=== PATIENT | female | born 1945 | race Hispanic/Latino ===

== ENCOUNTER 2024-02-04 19:04 | Emergency (ER) | payer MEDICARE ==
[~2024-02-04] VITALS: Ht 309.9 cm; Wt 67.1 kg
[~2024-02-04 19:04] MED LIST: AMLODIPINE BESYL5 MG PO; BENZONATATE100 MG PO; BUSPIRONE HCL7.5 MG PO; CARVEDILOL12.5 MG PO; CEFDINIR300 MG PO; CELECOXIB100 MG PO; CLOPIDOGREL75 MG PO; CYCLOBENZAPRINE5 MG PO; GABAPENTIN300 MG PO; HYDRALAZINE HCL10 MG PO; HYDROCODON-ACE1 EA11 PO; LOSARTAN POTASS50 MG PO; METHOCARBAMOL750 MG PO; ONDANSETRON HCL4 MG SL; ROSUVASTATIN CA20 MG PO; SERTRALINE HCL100 MG PO
[2024-02-04] MEDS ORDERED: SODIUM CHLORIDE 0.9% 1000ML 1,000 ML ONE (19:19)
[2024-02-04] MEDS ORDERED: Morphine 4mg INJECTION 4 MG/ML INJ ONE (19:19)
[2024-02-04] MEDS ORDERED: ONDANSETRON HCL INJ 2MG/ML 2ML 2 MG/ML VIAL ONE (19:19)
[2024-02-04] MEDS: ONDANSETRON HCL 4 MG ORAL DISINTEGRATING TAB PO STA (19:29)
[2024-02-04] MEDS: Morphine 4mg INJECTION 4 MG/ML INJ IM STA (19:29)
[2024-02-04] MEDS: ONDANSETRON HCL INJ 2MG/ML 2ML 2 MG/ML VIAL IV STA (19:30)
[2024-02-04] MEDS: Morphine 4mg INJECTION 4 MG/ML INJ IV ONE (19:30)
[2024-02-04] MEDS ORDERED: ONDANSETRON HCL 4 MG ORAL DISINTEGRATING TAB ONE (19:31)
[2024-02-04] MEDS: LIDOCAINE HCL 1% LOCAL INJ 20 ML VIAL INJ STA (20:11)
[2024-02-04] MEDS: SODIUM CHLORIDE 0.9% 1000ML 1,000 ML IV ONE (20:11)
[2024-02-04] MEDS ORDERED: HYDROCODON-ACE1 EA11 PO (20:39)
[2024-02-04] MEDS ORDERED: BACITRACIN ZINC 0.9GM TP ONE (21:11)
[2024-02-04] MEDS: BACITRACIN ZINC 0.9GM TP ONE (21:11)
[2024-02-04 22:18] VITALS: BP 140/65; PULSE 69; RESP 17; TEMP 98.1; O2SAT 100
== END 2024-02-04 22:30 | disposition home or self-care (01) ==
LOC: ER 20:04
DX: T24.222A Burn of second degree of left knee, initial encounter (principal); X12.XXXA Contact with other hot fluids, initial encounter; Y92.89 Other specified places as the place of occurrence of the external cause; I10 Essential (primary) hypertension; F03.90 Unspecified dementia, unspecified severity, without behavioral disturbance, psychotic disturbance, mood disturbance, and anxiety; E78.5 Hyperlipidemia, unspecified; I73.9 Peripheral vascular disease, unspecified; F32.A Depression, unspecified; Z95.810 Presence of automatic (implantable) cardiac defibrillator; Z86.73 Personal history of transient ischemic attack (TIA), and cerebral infarction without residual deficits
CPT/HCPCS: 99283; J2001; J2270; J2405; J7030; Q0162

== ENCOUNTER 2024-04-08 20:29 | Emergency (ER) | payer MEDICARE ==
[~2024-04-08] VITALS: Ht 157.5 cm; Wt 67.1 kg
[~2024-04-08 20:29] MED LIST changes: +CIPRO500 MG PO; +LEVSIN-SL0.125 MG SL
[2024-04-08 20:58] LABS: BASOPHILS % 0.9 % (0.0-1.0); EOSINOPHILS # (AUTO) 0.1 (0.0-0.4); EOSINOPHILS % 2.4 % (0.0-6.0); HEMATOCRIT 36.1 % (34.2-44.1); HEMOGLOBIN 11.7 g/dL (12.0-16.0); LYMPHOCYTES % 43.9 % (18.0-39.1); MEAN CORPUSCULAR HEMOGLOBIN 29.1 pg (28-32); MEAN CORPUSCULAR HGB CONC 32.4 g/dL (31-35); MEAN CORPUSCULAR VOLUME 89.8 fL (81-99); MONOCYTES # (AUTO) 0.4 (0.2-0.8); NEUTROPHILS # (AUTO) 2.1 (2.1-6.9); NEUTROPHILS % 44.6 % (38.7-80.0); PLATELET COUNT 211 x10e3/uL (140-360); RED BLOOD COUNT 4.02 x10e6/uL (3.6-5.1); RED CELL DISTRIBUTION WIDTH 13.3 % (11.7-14.4); WHITE BLOOD COUNT 4.62 x10e3/uL (4.8-10.8)
[2024-04-08 21:18] LABS: ALANINE AMINOTRANSFERASE 15 IU/L (0-55); ALBUMIN 3.5 g/dL (3.5-5.0); ALBUMIN/GLOBULIN RATIO 1.4 (0.8-2.0); ALKALINE PHOSPHATASE 105 IU/L (40-150); BILIRUBIN,TOTAL 0.4 mg/dL (0.2-1.2); BLOOD UREA NITROGEN 10 mg/dL (7-26); BUN/CREATININE RATIO 13 (6-25); CALCIUM 8.5 mg/dL (8.4-10.2); CARBON DIOXIDE 23 mmol/L (22-29); CHLORIDE 106 mmol/L (98-107); CREATINE KINASE 68 IU/L (29-168); CREATININE, SERUM 0.79 mg/dL (0.57-1.11); EST GLOMERULAR FILTRATION RATE 76 ML/MIN (>=60); GLUCOSE 96 mg/dL (74-118); SODIUM 139 mmol/L (136-145)
[2024-04-08 21:20] LABS: TROPONIN I < 0.001 ng/mL (0-0.300)
[2024-04-08] MEDS ORDERED: IOPAMIDOL 370 MG/ML 100 ML INFUS..BTL INJ ONE (22:19)
[2024-04-08 23:05] LABS: BILIRUBIN,URINE NEGATIVE (NEGATIVE); CLARITY,URINE CLEAR (CLEAR); COLOR,URINE YELLOW (YELLOW); GLUCOSE, URINE NEGATIVE (NEGATIVE); KETONES,URINE NEGATIVE (NEGATIVE); LEUKOCYTE ESTERASE ,URINE TRACE (NEGATIVE); NITRITE,URINE NEGATIVE (NEGATIVE); PH,URINE 6.5 (5 - 7); PROTEIN,URINE DIPSTICK NEGATIVE (NEGATIVE); URINE UROBILINOGEN 0.2 mg/dL (0.2 - 1)
[2024-04-08 23:31] LABS: BACTERIA,URINE FEW /HPF; EPITHELIAL CELLS,URINE FEW /LPF; RBC,URINE 0-5 /HPF (0-5); WBC,URINE (MAN) 0-5 /HPF (0-5)
[2024-04-08 23:32] LABS: RENAL EPITHELIAL CELLS,URINE FEW
[2024-04-09] MEDS ORDERED: ACETAMINOPHEN 325 MG TAB ONE (01:03)
[2024-04-09] MEDS: KETOROLAC TROMETHAMINE 30 MG/ML VIAL IV STA (01:27)
[2024-04-09] MEDS: ACETAMINOPHEN 325 MG TAB PO ONE (01:37)
[2024-04-09] MEDS ORDERED: BACTRIM DS TAB1 EACH PO (01:38)
[2024-04-09] MEDS ORDERED: PYRIDIUM100 MG PO (01:38)
[2024-04-09 02:47] VITALS: BP 228/86
[2024-04-09] MEDS: HYDRALAZINE HCL 20 MG/ML VIAL IV STA (02:47)
[2024-04-09 02:57] VITALS: TEMP 97.6
[2024-04-09 03:04] VITALS: PULSE 60; RESP 17; O2SAT 100
== END 2024-04-09 03:06 | disposition home or self-care (01) ==
LOC: ER 20:35
DX: R33.9 Retention of urine, unspecified (principal); R10.84 Generalized abdominal pain; R51.9 Headache, unspecified; I10 Essential (primary) hypertension; E78.5 Hyperlipidemia, unspecified; I25.10 Atherosclerotic heart disease of native coronary artery without angina pectoris; F32.A Depression, unspecified; Z11.52 Encounter for screening for COVID-19; R94.31 Abnormal electrocardiogram [ECG] [EKG]; I25.2 Old myocardial infarction; Z86.73 Personal history of transient ischemic attack (TIA), and cerebral infarction without residual deficits
CPT/HCPCS: 36415; 70450; 71045; 74177; 80053; 81001; 82550; 83880; 84484; 85025; 93005; 99284; J0360; Q9967; U0002